=== PATIENT | male | born 1995 ===

== ENCOUNTER 2017-07-24 17:58 | Emergency (ER) | payer OTHER ==
[~2017-07-24] VITALS: Ht 180.3 cm; Wt 73.8 kg
[2017-07-24 18:10] VITALS: BP 117/74; PULSE 88; TEMP 37; O2SAT 98; Ht 180.3 cm; Wt 73.8 kg
[2017-07-24] MEDS ORDERED: IBUPROFEN 600 MG TAB PO STA (18:46)
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
== END 2017-07-24 19:45 | disposition home or self-care (01) ==
LOC: C.EDB 18:01 → C.EDD 19:45
DX: S70.02XA Contusion of left hip, initial encounter (principal); S70.12XA Contusion of left thigh, initial encounter; V43.52XA Car driver injured in collision with other type car in traffic accident, initial encounter; Y92.410 Unspecified street and highway as the place of occurrence of the external cause